=== PATIENT | female | born 1960 | race Asian ===

== ENCOUNTER 2024-03-19 17:25 | Emergency (ER) | payer OTHER ==
[~2024-03-19] VITALS: Ht 144.8 cm; Wt 53.5 kg
[2024-03-19 17:31] VITALS: BP 203/102; PULSE 96; RESP 16; TEMP 98.2; O2SAT 99
== END 2024-03-19 23:01 | disposition home or self-care (01) ==
LOC: ER 17:25
DX: R05.9 Cough, unspecified (principal); Z53.21 Procedure and treatment not carried out due to patient leaving prior to being seen by health care provider
CPT/HCPCS: 71045; 99281; 99283